=== PATIENT | female | born 1960 | race Caucasian/White ===

== ENCOUNTER → 2016-12-27 | Outpatient (CLI) | payer BC ==
[~2016-12-27] MED LIST: DRISDOL 5050000 UNIT PO; HYDROCHLOROTHIA50 MG PO; LEVOTHROID (S100 MCG PO; LEVOTHROID (S200 MCG PO; LEVOTHROID (SY25 MCG PO; LEVOTHYROXINE200 MCG PO; PROTONIX40 MG PO; TRICOR145 MG PO; ZOLOFT100 M1 PO
== END ==
LOC: GBCOE 08:30
DX: Z12.31 Encounter for screening mammogram for malignant neoplasm of breast (principal)
CPT/HCPCS: G0202